=== PATIENT | male | born 2000 | race Caucasian/White ===

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

== ENCOUNTER 2019-11-25 19:53 | Inpatient (IN) | payer OTHER, SELFPAY ==
[~2019-11-25] VITALS: Ht 180.3 cm; Wt 81.8 kg
[~2019-11-25 19:53] MED LIST changes: +HYDR1TAB33 PO; -HYDRO50TAB PO; +TRAZ1TAB10 PO; -TRAZO50TA PO
[2019-11-25 20:32] LABS: HEMATOCRIT 49.8 % (42.0-52.0); HEMOGLOBIN 17.6 g/dl (13.5-17.5); MEAN CORPUSCULAR HEMOGLOBIN 32.8 pg (27.0-33.0); MEAN CORPUSCULAR HGB CONC 35.3 g/dl (32.0-36.5); MEAN CORPUSCULAR VOLUME 92.7 fl (80.0-96.0); PLATELET COUNT, AUTOMATED 231 10^3/uL (150-450); RED BLOOD COUNT 5.37 10^6/uL (4.30-6.10); WHITE BLOOD COUNT 12.6 10^3/uL (4.0-10.0)
[2019-11-25 20:58] LABS: AMPHETAMINES LEVEL URINE NEGATIVE (NEGATIVE); BARBITURATES URINE NEGATIVE (NEGATIVE); BENZODIAZEPINES URINE NEGATIVE (NEGATIVE); CANNABINOIDS URINE POSITIVE (NEGATIVE); COCAINE METABOLITE URINE NEGATIVE (NEGATIVE); METHADONE URINE NEGATIVE (NEGATIVE); OPIATES URINE NEGATIVE (NEGATIVE); PHENCYCLIDINE URINE NEGATIVE (NEGATIVE)
[2019-11-25 21:11] LABS: ACETAMINOPHEN LEVEL < 2.0 UG/ML (10.0-30.0); ALBUMIN 4.7 GM/DL (3.2-5.2); ALT/SGPT 37 U/L (12-78); BILIRUBIN,DIRECT 0.1 MG/DL (0.0-0.2); BILIRUBIN,TOTAL 0.3 MG/DL (0.2-1.0); BLOOD UREA NITROGEN 12 MG/DL (7-18); CALCIUM LEVEL 9.3 MG/DL (8.5-10.1); CARBON DIOXIDE LEVEL 31 MEQ/L (21-32); CHLORIDE LEVEL 106 MEQ/L (98-107); CREATININE FOR GFR 1.03 MG/DL (0.70-1.30); ETHYL ALCOHOL (ETHANOL) < 0.003 % (0.000-0.010); GLOMERULAR FILTRATION RATE > 60.0 (>60); GLUCOSE, FASTING 122 MG/DL (70-100); POTASSIUM SERUM 3.4 MEQ/L (3.5-5.1); SALICYLATE LEVEL < 1.7 MG/DL (5.0-30.0); SODIUM LEVEL 141 MEQ/L (136-145); TOTAL PROTEIN 7.7 GM/DL (6.4-8.2)
[2019-11-25] MEDS ORDERED: POTASSIUM CHLORIDE 10 MEQ SR TABLET PO ONE (21:15)
[2019-11-25] MEDS ORDERED: ACETAMINOPHEN TAB 650MG DOSE (2X325MG) PO PRN (22:15)
[2019-11-25] MEDS ORDERED: OLANZapine 5 MG TAB PO PRN (22:15)
[2019-11-25] MEDS ORDERED: MOM 30ML SUSPENSION UDC PO PRN (22:15)
[2019-11-25] MEDS ORDERED: MAALOX 30 ML SUSP *UDC PO PRN (22:15)
[2019-11-25] MEDS ORDERED: traZODone 50 MG TAB PO PRN (22:15)
[2019-11-25 22:38] VITALS: BP 147/69
[2019-11-26 06:04] VITALS: BP 144/64
[2019-11-26 16:02] VITALS: BP 119/74
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
--- NOTE | 2019-11-26 18:06 | HPEPDOC ---
[facility] Medical History & Physical Date of Admission November 25, 2019 Date of Service: November 26, 2019 History and Physical CHIEF COMPLAINT: Admitted to inpatient mental health unit for suicidal ideation HISTORY OF PRESENT ILLNESS: 19-year-old male with past medical history of depression and suicidal ideation is admitted to inpatient mental health unit for suicidal ideation. Patient reports a lot of stress at home due to his family, he has no support from his parents and feels responsible for his younger siblings. He also has increased stress from his significant other and their child together, as they are and his significant other is preventing him from seeing his child as often as he would like. Patient reported thoughts of suicide to his significant other who called the police and he was brought in. He has no complaint at this time, denies suicidal ideation. He denies any shortness of breath, chest pain, nausea, vomiting, diarrhea or constipation. 10 point review of system is negative so for above PAST MEDICAL HISTORY: 1. Depression. 2. Suicidal ideation. PAST SURGICAL HISTORY: 1. None. SOCIAL HISTORY: Never smoker. Denies alcohol use Smokes marijuana FAMILY HISTORY: Negative for cancer, heart disease ALLERGIES: Please see below. HOME MEDICATIONS: Please see below. PHYSICAL EXAMINATION: VITAL SIGNS: Please see below. GENERAL: No distress HEENT: Normocephalic, atraumatic, moist mucous membranes NECK: Supple CARDIOVASCULAR EXAMINATION: S1, S2, no murmurs RESPIRATORY EXAMINATION: Clear to auscultation, no wheezing ABDOMINAL EXAMINATION: Soft, nontender, nondistended, positive bowel sounds EXTREMITIES: Range of motion intact SKIN: No rash NEUROLOGICAL EXAMINATION: Alert and oriented 3, no focal deficits PSYCHIATRIC EXAMINATION: Calm and cooperative LABORATORY DATA: See below. MICROBIOLOGY: Please see below. ASSESSMENT: 19-year-old male with past medical history of depression and suicidal ideation. Is admitted to inpatient mental health unit for suicidal ideation. PLAN: 1. Suicidal ideation. Management as per primary team Patient has no active medical issues at this time, please reconsult as needed. Vital Signs Vital Signs Date Time Temp Pulse Resp B/P (MAP) Pulse Ox O2 Delivery O2 Flow Rate FiO2 11/26/19 16:02 98.4 79 16 119/74 (89) 11/25/19 22:38 99 Room Air Laboratory Data Labs 24H Laboratory Tests 2 11/25/19 20:19: Nucleated Red Blood Cells % (auto) 0.0, Anion Gap 4L, Glomerular Filtration Rate > 60.0, Calcium Level 9.3, Total Bilirubin 0.3, Direct Bilirubin 0.1, Aspartate Amino Transf (AST/SGOT) 20, Alanine Aminotransferase (ALT/SGPT) 37, Alkaline Phosphatase 101, Total Protein 7.7, Albumin 4.7, Albumin/Globulin Ratio 1.57, Thyroid Stimulating Hormone (TSH) 1.360, Salicylates Level < 1.7L, Urine Opiates Screen NEGATIVE, Urine Methadone Screen NEGATIVE, Acetaminophen Level < 2.0L, Urine Barbiturates Screen NEGATIVE, Urine Phencyclidine Screen NEGATIVE, Urine Amphetamines Screen NEGATIVE, Urine Benzodiazepines Screen NEGATIVE, Urine Cocaine Metabolite Screen NEGATIVE, Urine Cannabinoids Screen POSITIVEH, Ethyl Alcohol Level < 0.003 CBC/BMP Laboratory Tests 11/25/19 20:19 Home Medications No Active Prescriptions or Reported Meds Allergies Coded Allergies: NSAIDS (Non-Steroidal Anti-Inflamma (Verified Adverse Reaction, Unknown, 11/26/19) Pt reports that at age 16 he had a reaction to an NSAID after a knee injury, but is unable to recall the event. He reports the NSAID was toradol and has since avoided NSAIDs A-FIB/CHADSVASC A-FIB History Current/History of A-Fib/PAF?: No Age/Risk Factor Scoring CHADSVASC: CHADSVASC Response (Comments) Value Age Risk Factor Age < 65 years old 0 Gender Risk Factor Male 0 Hx of CHF No 0 Hx of HTN No 0 Hx of Stroke/TIA/or VTE No 0 Hx of Diabetes No 0 Hx of Vascular Disease No 0 Total 0 KEREN PARK MD November 26, 2019 18:06
[2019-11-27 06:33] VITALS: BP 136/61
--- NOTE | 2019-11-27 10:36 | MHDSPDOC ---
[facility] Discharge Summary Discharge Summary DATE OF ADMISSION: November 25, 2019 at 22:05 DATE OF DISCHARGE: 11/27/2019 Discharge David Rene MRN: N/A Date of : N/A Date of Service: 11/27/2019 Diagnoses Unspecified depressive disorder. Cannabis use disorder. History of Present Illness The patient is a 19-year-old man presents after getting into an argument with his baby's mother. He had made some suicidal statements and was brought in. Consultants Involved Hospitalist/PCP screening Treatment and Progress On The Unit The patient was admitted to the inpatient mental health unit and generally obs erved where he resolved without any problem, suggesting more of an adjustment problem and situational disturbance than an overt depression. The patient made good progress, was amenable to treatment, generally did not engage in any aggression or statements of suicide. He was amenable to all treatments recommended and after observation was triaged for discharge at his request. Discharge Assessment A 19-year-old man with likely situational disturbance and adjustment problems presents after making statements in an argument with his . He is observed for well over 3 days with no signs of danger. The patient at the time of discharge did not meet criteria for involuntary admission/extension due to having a normal mental status exam, fair insight into the situation, They are engaged in the discharge process, as well as being friendly and amenable in behavioral control and havent been engaging in any observed concerning behavior or ideation recently. They decline voluntary extension/admission at this time and must be discharged in good michelle, as Im unable to make a case for holding the patient against their will. They may have historical risk factors of admissions and other interactions with psychiatry however, those are not modifiable from a clinical perspective. The patient will need to be discharged in good michelle. Mental Status Examination General: Well dressed with good hygiene Speech: Spontaneous and fluid Thought processes: Linear and logical MSK: Smooth and coordinated gait, no signs of tremors or involuntary orofacial movements Thought content: Future orientated Abstract reasoning, and computation: Intact Description of associations: Intact Description of abnormal or psychotic thoughts: Denies any suicidal or homicidal ideation. Denies any auditory or visual hallucinations. Does not appear to be responding to internal stimuli. Does not appear to be endorsing any bizarre or paranoid ideation. Judgment: fair Insight: fair Orientation: Alert and orientated 3 Cognition: Grossly normal Recent and remote memory: Intact Attention span and concentration: Intact Fund of knowledge: Adequate Mood: "okay" Affect: Euthymic with a full range Follow Up The social work team worked during the predischarge meeting in order to evaluate for further issues of lethality address them fully before discharge. They worked on safety planning with the patient's family members in order to ensure that the patient will have a safe and effective discharge. Time Spent The amount of time spent in the coordination of care for this patient was approximately 45 minutes. Vital Signs/I&Os Vital Signs Date Time Temp Pulse Resp B/P (MAP) Pulse Ox O2 Delivery O2 Flow Rate FiO2 11/27/19 06:33 98.3 77 14 136/61 (86) 11/25/19 22:38 99 Room Air Medications No Active Prescriptions or Reported Meds Allergies Coded Allergies: NSAIDS (Non-Steroidal Anti-Inflamma (Verified Adverse Reaction, Unknown, 11/26/19) Pt reports that at age 16 he had a reaction to an NSAID after a knee injury, but is unable to recall the event. He reports the NSAID was toradol and has since avoided NSAIDs JEFF NAJERA DO November 27, 2019 10:36
== END 2019-11-27 13:35 | disposition home or self-care (01) | DRG 754 ==
LOC: M ED 19:53 → M ED INP 22:05 → M PSY 22:53 → M ED 22:55
PROVIDERS: ADMIT Psychiatry & Neurology Psychiatry; ATTEND Psychiatry & Neurology Addiction Medicine
DX: F32.9 Major depressive disorder, single episode, unspecified (principal); F43.21 Adjustment disorder with depressed mood; F12.10 Cannabis abuse, uncomplicated; R45.851 Suicidal ideations; Z62.810 Personal history of physical and sexual abuse in childhood; Z62.811 Personal history of psychological abuse in childhood; Z63.5 Disruption of family by separation and divorce; Z81.8 Family history of other mental and behavioral disorders; Z88.6 Allergy status to analgesic agent